=== PATIENT | female | born 1945 | race Caucasian/White ===

== ENCOUNTER → 2017-04-16 | Outpatient (REF) | payer MEDICARE, OTHER ==
[2017-04-16 17:18] LABS: URIC ACID 5.8 MG/DL (2.6-6.0)
== END ==
LOC: M LAB REF 16:27
PROVIDERS: ATTEND Nurse Practitioner Family
DX: M25.561 Pain in right knee (principal)

== ENCOUNTER → 2017-09-17 | Outpatient (CLI) | payer OTHER ==
--- NOTE | 2017-09-19 15:16 | SLEEPCENT ---
DATE OF PROCEDURE: 09/17/2017 ORDERED BY: Eli Wilson Nocturnal polysomnography was performed for re-titration of pressure therapy in this patient with a diagnosis of obstructive sleep apnea syndrome, currently using continuous positive airway pressure (CPAP). For testing, a ResMed AirFit F10 full face mask of small size was used. 12 cm of water pressure were applied to the circuit and the lights were extinguished. 7 hours and 38 minutes of data were reviewed. There were 406 minutes of sleep identified. Sleep latency was short at 9.5 minutes. Rapid eye movement (REM) latency was short at 94 minutes. Sleep architecture was good with 3 REM cycles. Overall sleep efficiency was 90%. The patient's electrocardiogram showed a sinus rhythm with an average heart rate of 56 beats per minute. EEG showed normal waveforms for awake and sleep. A slight increase in continuous positive airway pressure (CPAP) pressure to 13 resulted in resolution of respiratory events. There was some mild snoring late in the study, but no sleep disruption. There was some limb activity, but limb movement arousal index was 3.3. There were no oxygen desaturations on CPAP. IMPRESSION: Obstructive sleep apnea syndrome (G47.33). RECOMMENDATION: Nightly use of pressure therapy, 13 cm of water. Copy To: Dr. Pennington
== END ==
LOC: M SLEEP 19:53
PROVIDERS: ATTEND Nurse Practitioner Adult Health
DX: G47.33 Obstructive sleep apnea (adult) (pediatric) (principal); R40.0 Somnolence

== ENCOUNTER → 2018-09-02 | Outpatient (REF) | payer OTHER ==
[2018-09-03 14:43] LABS: HEPATITIS C VIRUS ABY INDEX 0.1 INDEX (<0.8)
== END ==
LOC: M LAB REF 12:16
DX: Z11.59 Encounter for screening for other viral diseases (principal)
CPT/HCPCS: 86803

== ENCOUNTER → 2018-10-01 | Outpatient (CLI) | payer OTHER | LOC: M WHC 09:24 | DX: Z12.31 Encounter for screening mammogram for malignant neoplasm of breast (principal); Z86.018 Personal history of other benign neoplasm; Z98.890 Other specified postprocedural states | CPT/HCPCS: 77067 ==

== ENCOUNTER 2019-08-18 11:06 | Day surgery (SDC) | payer MEDICARE ==
[~2019-08-18] VITALS: Ht 160 cm; Wt 93.4 kg
[~2019-08-18 11:06] MED LIST: BISO1TAB17 PO; EZET10TA21 PO; LEVO112T2 PO; LISI10TA4 PO; NS 1,000 ML IV ONE
[2019-08-18] MEDS ORDERED: LIDOCAINE 2% INJ 100 MG/5 ML SDV (FOR ANES.) As Ordered ONE (13:28)
[2019-08-18] MEDS ORDERED: PROPOFOL 200 MG/20 ML VIAL As Ordered ONE ×2 (13:28→14:12)
--- NOTE | 2019-08-18 14:23 | ROOR ---
Patient Name: Sania Farooq Procedure Date: 08/18/2019 1:56 PM Date of : 1945 Age: 73 Room: [facility] Gender: Female Note Status: Finalized Procedure: Colonoscopy Indications: Screening for colorectal malignant neoplasm Providers: Sean Hurt Jr, MD Referring MD: Reid Pennington MD Requesting Provider: Medicines: Propofol per Anesthesia Complications: No immediate complications. Procedure: Pre-Anesthesia Assessment: - Prior to the procedure, a History and Physical was performed, and patient medications and allergies were reviewed. The patient is competent. The risks and benefits of the procedure and the sedation options and risks were discussed with the patient. All questions were answered and informed consent was obtained. Patient identification and proposed procedure were verified by the physician and the nurse in the pre-procedure area and in the procedure room. Mental Status Examination: alert and oriented. Airway Examination: normal oropharyngeal airway and neck mobility. Respiratory Examination: clear to auscultation. CV Examination: normal. ASA Grade Assessment: II - A patient with mild systemic disease. After reviewing the risks and benefits, the patient was deemed in satisfactory condition to undergo the procedure. The anesthesia plan was to use moderate sedation / analgesia (conscious sedation). Immediately prior to administration of medications, the patient was re-assessed for adequacy to receive sedatives. The heart rate, respiratory rate, oxygen saturations, blood pressure, adequacy of pulmonary ventilation, and response to care were monitored throughout the procedure. The physical status of the patient was re-assessed after the procedure. The Colonoscope was introduced through the anus and advanced to the cecum, identified by appendiceal orifice and ileocecal valve. The colonoscopy was performed without difficulty. The patient tolerated the procedure well. The quality of the bowel preparation was poor. Findings: Two polyps were found in the ascending colon and cecum. The polyps were medium in size. These polyps were removed with a hot snare. Resection and retrieval were complete. To close a defect after polypectomy, one hemostatic clip was successfully placed. There was no bleeding at the end of the procedure. Many small and large-mouthed diverticula were found in the sigmoid colon. The rectum, recto-sigmoid colon, descending colon and transverse colon appeared normal. Impression: - Preparation of the colon was poor. - Two medium polyps in the ascending colon and in the cecum, removed with a hot snare. Resected and retrieved. Clip was placed. - Diverticulosis in the sigmoid colon. - The rectum, recto-sigmoid colon, descending colon and transverse colon are normal. Recommendation: - Discharge patient to home (ambulatory). - Repeat colonoscopy in 5-10 years for surveillance based on pathology results. - Telephone my office for pathology results in 1 week. Sean Hurt MD Sean Hurt Jr, MD 08/18/2019 2:23:38 PM Electronically signed by Sean uHrt Jr, MD Number of Addenda: 0 Note Initiated On: 08/18/2019 1:56 PM Estimated Blood Loss: Estimated blood loss: none.
[2019-08-18 15:00] VITALS: BP 113/74
== END 2019-08-18 15:08 | disposition home or self-care (01) ==
LOC: M OPP 11:06
PROVIDERS: ATTEND Surgery
DX: Z12.11 Encounter for screening for malignant neoplasm of colon (principal); D12.2 Benign neoplasm of ascending colon; D12.0 Benign neoplasm of cecum; K57.30 Diverticulosis of large intestine without perforation or abscess without bleeding; E03.9 Hypothyroidism, unspecified; I10 Essential (primary) hypertension; G47.30 Sleep apnea, unspecified; Z79.899 Other long term (current) drug therapy

== ENCOUNTER → 2020-12-28 | Outpatient (CLI) | payer MEDICARE ==
[~2020-12-28] MED LIST changes: +LISI10TA22 PO; -LISI10TA4 PO; -NS 1,000 ML IV ONE
--- NOTE | 2020-12-28 08:44 | REPMRS ---
Patient History The patient states she has not had a clinical breast exam in over a year. Familily history of ovarian cancer at age 50 or over in paternal cousin, ovarian cancer under age 50 in niece. Benign stereotatic loc for ea lesion of the left breast, February 12, 2012. Reductions of both breasts, 1993. Digital Woman Screen Mammo: December 28, 2020 - Exam #: [id number] Bilateral CC and MLO view(s) were taken. Technologist: Cheryl Edouard, Technologist Prior study comparison: October 01, 2018, bilateral digital woman screen mammo performed at [facility]. November 08, 2015, digital woman screen mammo performed at [facility]. April 05, 2014, digital woman screen mammo performed at [facility]. FINDINGS: The breast tissue is almost entirely fat. The Volpara volumetric breast density category is: A. There has been no change in the appearance of the mammogram from the prior studies. There is no interval development of dominant mass, architectural distortion, or grouped microcalcification typical of malignancy. 3-D tomosynthesis shows no additional findings. Assessment: BI-RADS/ACR category 1 mammogram. Negative Mammogram. Recommendation Routine screening mammogram of both breasts in 1 year (for women over age 40). This patient's [facility] Lifetime Breast Cancer RIsk is estimated at 2.7 %. This mammogram was interpreted with the aid of an FDA-approved computer-aided dectection system. Electronically Signed By: Shlomo Berg MD 12/28/20 0844
== END ==
LOC: M WHC 07:18
PROVIDERS: ATTEND Family Medicine
DX: Z12.31 Encounter for screening mammogram for malignant neoplasm of breast (principal); Z80.41 Family history of malignant neoplasm of ovary; Z86.018 Personal history of other benign neoplasm; Z98.890 Other specified postprocedural states

== ENCOUNTER → 2022-01-23 | Outpatient (CLI) | payer MEDICARE | LOC: M EKG 09:06 | PROVIDERS: ATTEND Family Medicine | DX: R00.0 Tachycardia, unspecified (principal); R00.2 Palpitations ==

== ENCOUNTER → 2022-02-10 | Outpatient (CLI) | payer MEDICARE | LOC: M WHC 09:10 | PROVIDERS: ATTEND Family Medicine | DX: Z12.31 Encounter for screening mammogram for malignant neoplasm of breast (principal) ==

== ENCOUNTER → 2022-06-27 | Outpatient (REF) | payer MEDICARE | LOC: M LAB REF 15:51 | PROVIDERS: ATTEND Family Medicine | DX: N39.0 Urinary tract infection, site not specified (principal) ==

== ENCOUNTER → 2022-07-10 | Outpatient (REF) | payer MEDICARE ==
[2022-07-10 13:31] LABS: APPEARANCE, URINE MANUAL CLOUDY (CLEAR); BILIRUBIN, URINE MANUAL NEGATIVE (NEGATIVE); BLOOD URINE MANUAL POSITIVE (NEGATIVE); COLOR, URINE MANUAL PINK (YELLOW); GLUCOSE, URINE (UA) MANUAL NEGATIVE (NEGATIVE); KETONE, URINE MANUAL NEGATIVE (NEGATIVE); NITRITE, URINE MANUAL NEGATIVE (NEGATIVE); PROTEIN, URINE MANUAL 1+ mg/dL (NEGATIVE); UROBILINOGEN, URINE MANUAL NORMAL (NORMAL)
[2022-07-10 13:32] LABS: LEUKOCYTE ESTERASE, URINE MAN TRACE (NEGATIVE)
[2022-07-10 13:51] LABS: RBC, URINE TNTC /hpf (0-3); SQUAMOUS EPITHELIAL CELL URINE MOD AMOUNT /hpf (SMALL AMT)
[2022-07-10 13:52] LABS: BACTERIA, URINE SMALL AMOUNT; MUCUS, URINE SMALL AMOUNT (NEGATIVE)
[2022-07-10 13:53] LABS: HYALINE CAST, URINE NONE SEEN /lpf (0-1)
== END ==
LOC: M SMT 12:19
PROVIDERS: ATTEND Nurse Practitioner Women's Health
DX: R31.0 Gross hematuria (principal)

== ENCOUNTER → 2022-07-18 | Outpatient (CLI) | payer MEDICARE ==
[~2022-07-18] MED LIST changes: +ISOVUE-370 76% 100ML VIAL As Ordered ONE
== END ==
LOC: M RAD 08:39
PROVIDERS: ATTEND Nurse Practitioner Women's Health
DX: R31.0 Gross hematuria (principal); N20.0 Calculus of kidney; N28.1 Cyst of kidney, acquired
CPT/HCPCS: 74178; Q9967

== ENCOUNTER → 2022-08-03 | Outpatient (CLI) | payer MEDICARE ==
[~2022-08-03] MED LIST changes: -ISOVUE-370 76% 100ML VIAL As Ordered ONE
== END ==
LOC: M LABSMTC 09:05
PROVIDERS: ATTEND Anesthesiology
DX: Z01.812 Encounter for preprocedural laboratory examination (principal); Z11.52 Encounter for screening for COVID-19

== ENCOUNTER → 2022-08-05 | Outpatient (REF) | payer MEDICARE ==
[~2022-08-05] MED LIST changes: +ATOR80TA59 PO; +CO Q100C PO; +ELIQ5TAB PO; +EUTH25TA PO; +EUTH75TA PO; +FOLI1TAB11 PO; +HYDR-3713 PO; +METO1TAB32 PO; +[UNRECOGNIZED DRUG - OTHER] PO
[2022-08-05 12:23] LABS: PH,URINE MAN 5.5 UNITS (5.0 - 7.0); SPECIFIC GRAVITY,URINE MANUAL 1.005 (1.002-1.035)
[2022-08-05 12:29] LABS: BILIRUBIN, URINE MANUAL NEGATIVE (NEGATIVE); BLOOD URINE MANUAL NEGATIVE (NEGATIVE); GLUCOSE, URINE (UA) MANUAL NEGATIVE (NEGATIVE); KETONE, URINE MANUAL NEGATIVE (NEGATIVE); NITRITE, URINE MANUAL NEGATIVE (NEGATIVE); PROTEIN, URINE MANUAL NEGATIVE (NEGATIVE); UROBILINOGEN, URINE MANUAL NORMAL (NORMAL)
[2022-08-05 12:30] LABS: APPEARANCE, URINE MANUAL HAZY (CLEAR); COLOR, URINE MANUAL YELLOW (YELLOW)
[2022-08-05 12:31] LABS: BACTERIA, URINE MOD AMOUNT; HYALINE CAST, URINE NONE SEEN /lpf (0-1); LEUKOCYTE ESTERASE, URINE MAN TRACE (NEGATIVE); RBC, URINE NONE SEEN /hpf (0-3); WBC, URINE 0-1 /hpf (0-3)
[2022-08-05 12:32] LABS: SQUAMOUS EPITHELIAL CELL URINE MOD AMOUNT /hpf (SMALL AMT)
== END ==
LOC: M LAB REF 11:42
PROVIDERS: ATTEND Family Medicine
DX: Z01.818 Encounter for other preprocedural examination (principal)

== ENCOUNTER 2022-08-07 06:09 | Day surgery (SDC) | payer MEDICARE ==
[~2022-08-07] VITALS: Ht 160 cm; Wt 98.9 kg
[~2022-08-07 06:09] MED LIST changes: -HYDR-3713 PO; +ceFAZolin SOD 2 GM in IV 1 EA IV ONE
[2022-08-07] MEDS ORDERED: LR 1,000 ML IV SCH (06:55)
[2022-08-07] MEDS ORDERED: propofoL 200 MG/20 ML VIAL As Ordered ONE (07:11)
[2022-08-07] MEDS ORDERED: LIDOCAINE 2% 100MG/5ML SDV (FOR ANES.) As Ordered ONE (07:11)
[2022-08-07] MEDS ORDERED: fentaNYL 100 MCG/2 ML INJECTION As Ordered ONE (07:12)
[2022-08-07] MEDS ORDERED: MIDAZOLAM INJ 2MG/2ML VIAL (J2250 PER 1MG) As Ordered ONE (07:12)
[2022-08-07] MEDS ORDERED: HYDR-3713 PO (08:14)
[2022-08-07 08:30] VITALS: BP 133/68
== END 2022-08-07 08:42 | disposition home or self-care (01) ==
LOC: M SDC 06:09
PROVIDERS: ATTEND Urology
DX: N20.0 Calculus of kidney (principal); I10 Essential (primary) hypertension; E78.5 Hyperlipidemia, unspecified; K57.92 Diverticulitis of intestine, part unspecified, without perforation or abscess without bleeding; Z95.1 Presence of aortocoronary bypass graft; G47.33 Obstructive sleep apnea (adult) (pediatric); Z79.01 Long term (current) use of anticoagulants; Z79.899 Other long term (current) drug therapy
CPT/HCPCS: 50590; 74018; J0690; J2250; J3010

== ENCOUNTER → 2022-08-27 | Outpatient (CLI) | payer MEDICARE ==
[~2022-08-27] MED LIST changes: +HYDR-3713 PO; -ceFAZolin SOD 2 GM in IV 1 EA IV ONE
== END ==
LOC: M RAD 11:22
PROVIDERS: ATTEND Physician Assistant
DX: Z48.816 Encounter for surgical aftercare following surgery on the genitourinary system (principal); N28.89 Other specified disorders of kidney and ureter

== ENCOUNTER → 2023-05-19 | Outpatient (REF) | payer MEDICARE | LOC: M LAB REF 12:30 | PROVIDERS: ATTEND Nurse Practitioner Family | DX: N39.0 Urinary tract infection, site not specified (principal) ==

== ENCOUNTER → 2023-05-26 | Outpatient (REF) | payer MEDICARE | LOC: M LAB REF 11:50 | PROVIDERS: ATTEND Nurse Practitioner Family | DX: R31.9 Hematuria, unspecified (principal) ==

== ENCOUNTER → 2023-06-08 | Outpatient (REF) | payer MEDICARE | LOC: M LAB REF 17:29 | PROVIDERS: ATTEND Family Medicine | DX: R31.9 Hematuria, unspecified (principal) ==

== ENCOUNTER → 2025-03-02 | Outpatient (REF) | payer MEDICARE | LOC: M LAB REF 13:29 | PROVIDERS: ATTEND Nurse Practitioner Family | DX: R30.0 Dysuria (principal) ==